=== PATIENT | male | born 1985 | race Caucasian/White ===

== ENCOUNTER 2018-07-02 16:15 | Outpatient (CLI) | payer BC, SELFPAY ==
--- NOTE | 2018-07-02 13:16 | DI.RAD_ITS ---
SYMPTOMS/DIAGNOSIS: LT KNEE PAIN, M25.562 LEFT KNEE: Three views. No bone or joint abnormality is identified. The soft tissues are unremarkable. IMPRESSION: No acute abnormality.
== END 2018-07-02 16:35 ==
PROVIDERS: PCP Nurse Practitioner; Visit Provider Nurse Practitioner
DX: M25.562 Pain in left knee (principal)
CPT/HCPCS: 73562

== ENCOUNTER 2019-04-04 01:14 | Outpatient (CLI) | payer BC, SELFPAY ==
--- NOTE | 2019-04-04 15:00 | DI.RAD_ITS ---
SYMPTOM/DIAGNOSIS: CHRONIC BACK PAIN M54.89 THORACIC SPINE: There is no evidence of compression fracture. The alignment is normal. There are no visible degenerative changes. The heart size appears normal. The lungs appear clear. IMPRESSION: Negative cervical spine.
--- NOTE | 2019-04-04 15:00 | DI.RAD_ITS ---
SYMPTOM/DIAGNOSIS: CHRONIC BACK PAIN, M54.89 LUMBAR SPINE: The vertebral bodies and disc spaces are well maintained in height. No spondylolysis, spondylolisthesis or scoliosis seen. There are no significant degenerative changes. IMPRESSION: Negative lumbar spine.
--- NOTE | 2019-04-04 15:49 | DI.RAD_ITS ---
SYMPTOM/DIAGNOSIS: CHRONIC PAIN, M54.89 CERVICAL SPINE: There are minimal end plate osteophytes seen projecting posteriorly at C3-4 and C4-5. There are minimal facet degenerative changes. The discs are not significantly narrowed. The alignment appears normal. There is right neural foraminal narrowing at C3-4. IMPRESSION: Mild degenerative changes. There is apparent right neural foraminal narrowing at C3-4
== END 2019-04-04 01:34 ==
PROVIDERS: PCP Nurse Practitioner; Visit Provider Nurse Practitioner Family
DX: M54.2 Cervicalgia (principal); G89.29 Other chronic pain; M47.812 Spondylosis without myelopathy or radiculopathy, cervical region; M54.6 Pain in thoracic spine; M54.5 Low back pain
CPT/HCPCS: 72050; 72072; 72110

== ENCOUNTER 2020-01-31 12:08 | Outpatient (CLI) | payer BC, SELFPAY ==
[2020-01-31 14:15] LABS: HCT 40.6 % (40.0-50.0); HGB 13.9 g/dL (13.5-17.5); Mean Corp. HGB Concentration 34.2 g/dL (32.0-36.0); Mean Corpuscular Hemoglobin 29.6 pg (27.0-33.0); Mean Corpuscular Volume 86.4 fL (80-95); Mean Platelet Volume 9.2 fL (8.0-11.0); Platelet Count 259 x1000/uL (130-400); RBC Distribution Width 12.2 % (11.8-14.1); White Blood Cell Count 5.47 k/cumm (4.4-10.8)
[2020-01-31 15:06] LABS: ESR 4 mm/hr (0-15)
[2020-01-31 15:31] LABS: C-Reactive Protein 0.08 mg/dL (0.0-0.3)
[2020-01-31 21:44] LABS: Rheumatoid Factor <8.6 IU/mL (<12.0)
[2020-02-02 13:50] LABS: HLA-B27 Result Negative
[2020-02-03 09:48] LABS: Lyme Ab w Rflx to Lyme Confirm Negative (Negative)
== END 2020-01-31 12:28 ==
PROVIDERS: PCP Nurse Practitioner; Visit Provider Orthopaedic Surgery
DX: M25.50 Pain in unspecified joint (principal)
CPT/HCPCS: 36415; 85027; 85652; 86812; 86140; 86431; 86618

== ENCOUNTER 2020-06-22 15:28 | Outpatient (CLI) | payer BC, SELFPAY ==
--- NOTE | 2020-06-22 13:25 | DI.RAD_ITS ---
EXAM: XR KNEE LT 3V AP,LAT,PUMA CLINICAL HISTORY: LT KNEE PAIN, M25.562 TECHNIQUE: COMPARISON: No exams were available for comparison FINDINGS: Four views were obtained. No bony or soft tissue abnormality seen. IMPRESSION: Negative examination of the knee. RADIATION DOSE DELIVERED: Total DLP
== END 2020-06-22 15:48 ==
PROVIDERS: PCP Nurse Practitioner; Visit Provider Nurse Practitioner Family
DX: M25.562 Pain in left knee (principal)
CPT/HCPCS: 73562

== ENCOUNTER 2021-10-25 10:28 | Outpatient (CLI) | payer BC, SELFPAY ==
--- NOTE | 2021-10-25 10:15 | DI.RAD_ITS ---
Exam(s) XR FINGER RT INDEX EXAM: XR FINGER RT INDEX CLINICAL HISTORY: finger pain. TECHNIQUE: 2D digital imaging was performed. COMPARISON: No exams were available for comparison FINDINGS: BONES: No acute fracture is present. No bony destructive lesion is seen. JOINTS: No dislocation present. No joint space narrowing. SOFT TISSUE: Normal. IMPRESSION: No evidence of acute fracture, dislocation, or subluxation. DATA REPOSITORY: RADIATION DOSE DELIVERED:
== END 2021-10-25 10:29 | disposition home or self-care (01) ==
LOC: DIORS 10:29
PROVIDERS: PCP Nurse Practitioner; Referring Provider Nurse Practitioner; Visit Provider Physician Assistant
DX: M79.644 Pain in right finger(s) (principal)
CPT/HCPCS: 73140

== ENCOUNTER 2022-04-17 15:25 | Outpatient (REF) | payer BC, SELFPAY ==
[2022-04-17 17:33] LABS: HGB 14.5 g/dL (13.5-17.5); MCH 29.2 pg (27.0-33.0); MCHC 33.7 % (32.0-36.0); MCV 87 fL (80-95); MPV 10.3 fL (8.0-11.0); Platelet Count 245 10^3/uL (130-400); RBC 4.97 10^6/uL (4.36-5.78); RDW 11.5 % (11.8-14.1); RDW-SD 36.4 fL
[2022-04-17 17:57] LABS: ALT 22 U/L (16-63); AST 20 U/L (15-37); Albumin 4.2 g/dL (3.4-5.0); Alkaline Phosphatase 62 U/L (46-116); BUN 22 mg/dL (7-18); Bilirubin, Total 0.3 mg/dL (0.2-1.0); CO2 30.2 mmol/L (21.0-32.0); CREATININE 0.8 mg/dL (0.70-1.30); Calcium 9.1 mg/dL (8.5-10.1); Glucose 88 mg/dL (74-106); Total Protein 7.4 g/dL (6.4-8.2)
[2022-04-17 18:42] LABS: Anion Gap 5.8 mmol/L (3-11); Chloride 103 mmol/L (98-107); Potassium 4.4 mmol/L (3.5-5.1); Sodium 139 mmol/L (136-145)
[2022-04-20 23:07] LABS: Anaplasma phagocytophilum Negative (Negative); B. miyamotoi PCR Negative (Negative); Babesia divergens/MO-1 Negative (Negative); Babesia duncani Negative (Negative); Babesia microti Negative (Negative); Ehrlichia chaffeensis Negative (Negative); Ehrlichia ewingii/canis Negative (Negative); Ehrlichia muris eauclairensis Negative (Negative)
[2022-04-21 16:51] LABS: Lyme Ab w Rflx to Lyme Confirm Negative (Negative)
== END 2022-04-17 15:26 | disposition home or self-care (01) ==
LOC: NCHCN 15:25
PROVIDERS: PCP Nurse Practitioner; Visit Provider Nurse Practitioner Family
DX: R53.83 Other fatigue (principal)
CPT/HCPCS: 80053; 85027; 87798; 86618

== ENCOUNTER → 2022-04-23 09:37 | Outpatient (CLI) | payer BC, SELFPAY ==
--- NOTE | 2022-04-23 10:25 | DI.US_ITS ---
APPROVED REPORT EXAM: Comprehensive 2D, Doppler, and color-flow Echocardiogram Patient Location: Out-Patient Obstetrics Gyn: Sammi Stone RDCS ([place]) Indications: Family history of Sudden cardiac arrest, Heart murmur, sleep apnea Other Information Study Quality: Adequate Conclusion Normal left ventricular wall thickness and chamber size. Estimated ejection fraction is 60%. Wall m otion is normal Normal right ventricular size and systolic function Both atria are normal in size There is no structural or hemodynamically significant valvular disease Estimated right ventricular systolic pressure is 19mmHg Wall motion Left Ventricle The left ventricle is normal size. The left ventricular systolic function is normal. The left ventric ular ejection fraction is within the normal range. There is normal left ventricular wall thickness. T here is normal LV segmental wall motion. There is no ventricular septal defect visualized. LVEF is 60 %. Right Ventricle The right ventricle is normal size. The right ventricular systolic function is normal. The RVSP is 19 .6 mmHg. Atria The left atrium size is normal. The right atrium size is normal. The interatrial septum is intact wit h no evidence for an atrial septal defect. Aortic Valve The aortic valve is normal in structure. Aortic valve is trileaflet. There is no aortic valvular sten osis. No aortic regurgitation is present. Mitral Valve The mitral valve is normal in structure. No evidence of mitral valve stenosis. Trace mitral regurgita tion. Tricuspid Valve The tricuspid valve is normal in structure. There is no tricuspid valve stenosis. Trace tricuspid reg urgitation. Pulmonic Valve The pulmonary valve is normal in structure. There is no pulmonic valvular stenosis. There is no pulmo minor valvular regurgitation. Great Vessels The aortic root is normal in size. The ascending aorta is normal in size. Aortic arch is normal in ca liber. IVC is normal in size and collapses >50% with inspiration. Pericardium There is no pericardial effusion. 2D Dimensions IVSD d PLAX 0.78 cm M: 0.6-1.2 LV Vol A2C d MOD 137.3 mL LVPW d PLAX 0.80 cm M: 0.6 - 1.2 LV Vol A4C d MOD 169.9 mL LVID d PLAX 5.55 cm M: 4.2 - 5.8 LA vol/ BSA A2C s A-L 27.5 mL/m2 LVDs 3.80 cm M: 2.5 - 4.0 LA vol/ BSA A4C s A-L 13.4 mL/m2 Ao Root d 3.07 cm M: 3.1 - 3.7 LA Vol/ BSA Biplane s A-L 22.2 mL/m2 RA Area A4C 15.89 cm2 LA Area A4C s MOD 12.63 cm2 RA Vol/ BSA A4C s A-L 18.7 mL/m2 LA Area A2C s MOD 20.91 cm2 Ao Asc Diam d 3.17 cm M: 2.6 - 3.4 LV EF A4C MOD 59.3 % LV EF Teichholz 58.6 % LV EF A2C MOD 60.2 % LVEF (Cabrera's) 59.74 % M: 52 - 72 LV EF Biplane MOD 59.7 % LV Volume 109.67 mL M: 62 - 150 SV 91.67 mL LV Volume Index 47.06 mL/m2 M: 34 - 74 SV Index 39.37 mL/m2 LV Vol Biplane MOD 153.4 mL FS 31.30 % LV Diastology E/A Ratio 1.4 MV E Vmax 0.54 (0.4-1.3 m/s) MV A Vmax 0.40 (0.4-1.3 m/s) MV E/A Ratio 1.32 Aortic Valve LVOT Area 2.96 cm2 AoV Area Vmax 2.60 cm2 LVOT Vmax 1.12 m/s AoV Area/ BSA (Vmax) 1.11 cm2/m2 LVOT Mean Julius. 0.69 m/s BELLA Mean Julius. 2.20 cm2 LVOT Peak Grad 5.0 mmHg BELLA Mean Julius. Index 0.94 cm2/m2 LVOT Mean Grad 2.3 mmHg LVOT VTI 0.236 m LVOT Diam s 1.90 cm AoV Vmax 1.27 m/s Velocity Ratio 0.88 AoV Mean Julius. 0.94 m/s AoV Peak Grad 6.5 mmHg LVOT SV 69.81 mL AoV Mean Grad 3.9 mmHg AoV VTI 0.258 m AoV Area VTI 2.70 cm2 AoV Area/ BSA (VTI) 1.16 cm/m2 Mitral Valve MV DT 171 (160-240 msec) MV PHT 50 msec MV Area PHT 4.43 cm2 MV VTI 0.261 m MV Area VTI 2.67 (4.0-6.0 cm2) Pulmonary Valve PV Vmax 0.93 (0.5-1.5 m/s) RVOT Peak Gr. 1.66 mmHg PV Peak Grad 3.4 mmHg RVOT Mean Gr. 0.75 mmHg PV Mean Grad 1.8 mmHg RVOT VTI 0.142 m PV VTI 0.198 m RVOT Vmax 0.64 m/s Tricuspid Valve TR Peak Grad 16.6 mmHg TR Vmax 2.04 m/s RA Pressure 3.00 mmHg RVSP (TR) 19.6 mmHg
== END ==
PROVIDERS: PCP Nurse Practitioner; Visit Provider Nurse Practitioner Family
DX: R01.1 Cardiac murmur, unspecified (principal); G47.33 Obstructive sleep apnea (adult) (pediatric); Z82.41 Family history of sudden cardiac death
CPT/HCPCS: 93306

== ENCOUNTER → 2022-07-16 10:59 | Outpatient (CLI) | payer BC, SELFPAY ==
--- NOTE | 2022-07-16 10:30 | DI.RAD_ITS ---
Exam(s) XR ANKLE RT 2V XR FOOT RT COMPLETE EXAM: XR ANKLE RT 2V CLINICAL HISTORY: R ankle sprain, S93.409A TECHNIQUE: COMPARISON: CR XR FOOT RT COMPLETE from 07/16/2022 CR XR FOOT LT COMPLETE from 07/16/2022 FINDINGS: Three views of the foot and two views of the ankle were obtained. The ankle mortise is well maintain ed. Alignment appears within normal limits. There is no evidence of acute fracture or dislocation. IMPRESSION: RADIATION DOSE DELIVERED: Total DLP
--- NOTE | 2022-07-16 10:30 | DI.RAD_ITS ---
Exam(s) XR FOOT LT COMPLETE EXAM: XR FOOT LT COMPLETE CLINICAL HISTORY: longstanding PF, R ankle sprain, plantar fasciitis, M72.2 TECHNIQUE: COMPARISON: CR XR FOOT RT COMPLETE from 07/16/2022 FINDINGS: Three views were obtained. Alignment appears within normal limits. No bony or soft tissue abnormali ty seen. IMPRESSION: RADIATION DOSE DELIVERED: Total DLP
== END ==
PROVIDERS: PCP Nurse Practitioner Family; Visit Provider Podiatrist Foot & Ankle Surgery
DX: M72.2 Plantar fascial fibromatosis (principal); S93.401A Sprain of unspecified ligament of right ankle, initial encounter; X58.XXXA Exposure to other specified factors, initial encounter
CPT/HCPCS: 73600; 73630

== ENCOUNTER 2023-04-29 02:49 | Outpatient (CLI) | payer BC, SELFPAY ==
--- NOTE | 2023-04-29 14:20 | DI.RAD_ITS ---
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 COMPARISON: No exams were available for comparison TECHNIQUE: 2D digital imaging was performed. FINDINGS: No radiopaque foreign bodies are identified. IMPRESSION: No radiopaque foreign bodies are seen in the orbits. DATA REPOSITORY: RADIATION DOSE DELIVERED:
--- NOTE | 2023-04-29 14:50 | DI.MRI_ITS ---
Exam(s) MR LUMBAR SPINE WO EXAM: MR LUMBAR SPINE WO CLINICAL HISTORY: CHRONIC BACK PAIN, M54.89. TECHNIQUE: Multiplanar multisequence MRI of the Lumbar spine was performed. COMPARISON: CR XR lumbar spine complete from 04/04/2019 FINDINGS: Bones: The last intervertebral disc space is designated the L5/S1 level for the numbering purpose of this examination. The vertebral body heights are well maintained. Alignment is satisfactory. There is a hemangioma or fatty rest in the L5 vertebral body. Cord: The conus tip ends at the L1 level. It is of normal size and signal intensity. T12-L1: No disc herniations or bulges are present. No central spinal canal or neural foraminal stenos is. L1-2: No disc herniations or bulges are present. No central spinal canal or neural foraminal stenosis . L2-3: No disc herniations or bulges are present. No central spinal canal or neural foraminal stenosis . L3-4: No disc herniations or bulges are present. No central spinal canal or neural foraminal stenosis . L4-5: No disc herniations or bulges are present. No central spinal canal or neural foraminal stenosis . L5-S1: No disc herniation or bulge is present. There is disc desiccation at L5-S1. No central spinal canal or neural foraminal stenosis. Soft tissues: The visualized SI joints and sacrum are well maintained. The paraspinal soft tissues ar e unremarkable. IMPRESSION: There is no focal disc herniation central spinal canal or neural foraminal stenosis seen in the lumba r spine. DATA REPOSITORY:
== END 2023-04-29 03:09 ==
LOC: DI 02:49
PROVIDERS: PCP Nurse Practitioner Family; Visit Provider Nurse Practitioner Family
DX: M54.89 Other dorsalgia (principal)
CPT/HCPCS: 70030; 72148

== ENCOUNTER 2023-05-12 10:59 | Outpatient (CLI) | payer BC, SELFPAY ==
--- NOTE | 2023-05-12 10:30 | DI.RAD_ITS ---
Exam(s) XR KNEE LT 3V AP,LAT,PUMA EXAM: XR KNEE LT 3V AP,LAT,PUMA CLINICAL HISTORY: LEFT KNEE PAIN. TECHNIQUE: 2D digital imaging was performed of the left knee. Three images were obtained. Merchant ,AP and lateral views were obtained. COMPARISON: CR XR KNEE LT 3V AP,LAT,PUMA from 06/22/2020 FINDINGS: BONES: No acute fracture is present. No bony destructive lesion is seen. JOINTS: The knee is normally aligned. No joint effusion is seen. The tiny 2-3 mm density inferior to the patella on the lateral view is unchanged. SOFT TISSUE: Normal. IMPRESSION: No acute abnormality. DATA REPOSITORY: RADIATION DOSE DELIVERED:
== END 2023-05-12 11:00 | disposition home or self-care (01) ==
LOC: DIORS 11:00
PROVIDERS: PCP Nurse Practitioner Family; Visit Provider Student in an Organized Health Care Education/Training Program
DX: M25.562 Pain in left knee (principal)
CPT/HCPCS: 73562

== ENCOUNTER → 2023-06-02 01:44 | Outpatient (CLI) | payer BC, SELFPAY ==
--- NOTE | 2023-06-02 08:30 | DI.MRI_ITS ---
Exam(s) MR LOWER JOINT LT WO EXAM: MR LOWER JOINT LT WO CLINICAL HISTORY: PAIN, TEAR MEDIAL MENISCUS LT KNEE, S83.242A. TECHNIQUE: Multiplanar multisequence MRI was performed. COMPARISON: CR XR KNEE LT 3V AP,LAT,PUMA from 05/12/2023 FINDINGS: BONES: There is no fracture or contusion pattern. JOINTS: Articular cartilage is unremarkable. No effusion is present. TENDONS: Extensor mechanism: Unremarkable. Medial retinaculum: Unremarkable. Lateral retinaculum: Unremarkable. Popliteus: Unremarkable. MUSCLES: Unremarkable. MENISCI: The medial meniscus is unremarkable. The lateral meniscus is unremarkable. SOFT TISSUES: Unremarkable. LIGAMENTS: Anterior Cruciate: There is attenuation of the distal anterior cruciate ligament suspicious for tear. Posterior Cruciate: Unremarkable. Medial Collateral:Unremarkable. Lateral Collateral: Unremarkable. OTHER: IMPRESSION: 1. Findings consistent with a partial tear of the distal anterior cruciate ligament. 2. No evidence of a meniscal tear. DATA REPOSITORY:
== END ==
PROVIDERS: PCP Nurse Practitioner Family; Visit Provider Student in an Organized Health Care Education/Training Program
DX: S83.512A Sprain of anterior cruciate ligament of left knee, initial encounter (principal); X58.XXXA Exposure to other specified factors, initial encounter
CPT/HCPCS: 73721

== ENCOUNTER 2023-11-10 15:24 | Outpatient (REF) | payer BC, SELFPAY ==
[2023-11-10 21:26] LABS: HCT 41.8 % (40.0-50.0); HGB 14.4 g/dL (13.5-17.5); MCH 29.1 pg (27.0-33.0); MCHC 34.4 % (32.0-36.0); MCV 85 fL (80-95); Platelet Count 275 10^3/uL (130-400); RBC 4.94 10^6/uL (4.36-5.78); RDW 11.8 % (11.8-14.1); RDW-SD 35.8 fL; WBC 5.94 10^3/uL (4.4-10.8)
[2023-11-10 22:38] LABS: ALT 35 U/L (16-63); AST 17 U/L (15-37); Albumin 4.1 g/dL (3.4-5.0); Alkaline Phosphatase 67 U/L (46-116); BUN 22 mg/dL (7-18); Bilirubin, Total 0.3 mg/dL (0.2-1.0); Calcium 9.2 mg/dL (8.5-10.1); Chloride 104 mmol/L (98-107); Estimated GFR 99.41 (mL/min/1.73m2); Glucose 137 mg/dL (74-106); Sodium 142 mmol/L (136-145); TSH (W/Ref FT4) 0.85 uIU/mL (0.36-3.74); Total Protein 7.3 g/dL (6.4-8.2)
[2023-11-16 12:32] LABS: Testosterone, Total 239 ng/dL (240-950)
[2023-11-17 10:11] LABS: Prolactin 15.3 ng/mL (2.1-17.7)
== END 2023-11-10 15:25 | disposition home or self-care (01) ==
LOC: NCHCN 15:24
PROVIDERS: PCP Nurse Practitioner Family; Visit Provider Nurse Practitioner Family
DX: R55 Syncope and collapse (principal); F52.21 Male erectile disorder; F41.8 Other specified anxiety disorders; R25.1 Tremor, unspecified
CPT/HCPCS: 80053; 84403; 85027; 84146; 84443

== ENCOUNTER 2024-11-03 08:26 | Outpatient (CLI) | payer BC, SELFPAY ==
[2024-11-03 07:43] LABS: HCT 44.2 % (40.0-50.0); HGB 14.9 g/dL (13.5-17.5); MCH 29.5 pg (27.0-33.0); MCHC 33.7 % (32.0-36.0); MCV 88 fL (80-95); MPV 9.4 fL (8.0-11.0); Platelet Count 231 10^3/uL (130-400); RBC 5.05 10^6/uL (4.36-5.78); RDW 11.8 % (11.8-14.1); RDW-SD 37.8 fL; WBC 5.16 10^3/uL (4.4-10.8)
[2024-11-03 08:00] LABS: Hemoglobin A1C 5.3 % (<5.7)
[2024-11-03 08:07] LABS: ALT 25 U/L (16-63); AST 18 U/L (15-37); Alkaline Phosphatase 72 U/L (46-116); Anion Gap 6.3 mmol/L (3-11); BUN 15 mg/dL (7-18); Bilirubin, Total 0.49 mg/dL (0.2-1.0); CO2 30.7 mmol/L (21.0-32.0); Calcium 9.6 mg/dL (8.5-10.1); Calculated LDL 91 mg/dL (<100); Chloride 107 mmol/L (98-107); Cholesterol 163 mg/dL (<200); Glucose 100 mg/dL (74-106); HDL Cholesterol 66 mg/dL (40-60); Potassium 4.4 mmol/L (3.5-5.1); Sodium 144 mmol/L (136-145); Total Protein 7.5 g/dL (6.4-8.2); Triglyceride 33 mg/dL (<150)
[2024-11-07 16:25] LABS: Testosterone, Total 452 ng/dL (240-950)
== END 2024-11-03 08:27 | disposition home or self-care (01) ==
LOC: LBO 08:27
PROVIDERS: PCP Nurse Practitioner Family; Visit Provider Nurse Practitioner Family
DX: R89.1 Abnormal level of hormones in specimens from other organs, systems and tissues (principal); F52.21 Male erectile disorder
CPT/HCPCS: 36415; 80053; 80061; 84403; 85027; 83036; 84443

== ENCOUNTER 2024-11-17 14:14 | Outpatient (REF) | payer BC, SELFPAY ==
[2024-11-21 16:43] LABS: Appearance Normal; Container Type 50 mL Conical; Germ Cells/mL 0.15 x10(6) (<4.00); Grade 2.5 (>=2.5); Motile/Ejaculate 1.5 x10(6) (>=9.0); Motility 36 % (>=40); Semen Volume 1.5 mL (>=1.5); Sperm/mL 2.8 x10(6) (>=15.0); Study Type Semen; WBC/mL 0.03 x10(6) (<1.00)
== END 2024-11-17 14:15 | disposition home or self-care (01) ==
LOC: NCHCN 14:14
PROVIDERS: PCP Nurse Practitioner Family; Visit Provider Nurse Practitioner Family
DX: N46.9 Male infertility, unspecified (principal)
CPT/HCPCS: 89240; 89310

== ENCOUNTER 2024-11-18 13:30 | Outpatient (CLI) | payer BC, SELFPAY ==
--- NOTE | 2024-11-18 | DI.RAD_ITS ---
Exam(s) XR HAND RT COMPLETE EXAM: XR HAND RT COMPLETE CLINICAL HISTORY: PAIN RT HAND, M79.641. TECHNIQUE: 2D digital imaging was performed. Three views. COMPARISON: CR XR FINGER RT INDEX from 10/25/2021 FINDINGS: BONES: No acute fracture is present. No bony destructive lesion is seen. JOINTS: No dislocation present. SOFT TISSUE: Normal. IMPRESSION: Unremarkable radiographs of the right hand. DATA REPOSITORY: RADIATION DOSE DELIVERED:
== END 2024-11-18 13:50 ==
LOC: DI 13:33
PROVIDERS: PCP Nurse Practitioner Family; Visit Provider Nurse Practitioner Family
DX: M79.641 Pain in right hand (principal)
CPT/HCPCS: 73130